=== PATIENT | female | born 1965 | race American Indian/Alaskan Native ===

== ENCOUNTER 2017-11-26 16:33 | Emergency (ER) | payer BC ==
[2017-11-26 16:42] VITALS: TEMP 98.6; BMI 24.6
--- NOTE | 2017-11-26 16:52 | ED PDOC ---
Arrival/HPI - General Chief Complaint: High Blood Pressure Time Seen by Provider: 11/26/17 16:37 Historian: Patient, EMS - History of Present Illness Narrative History of Present Illness (Text): you were treated in the ED today for history of high blood pressure which you aren't on medication yet and having chest pain with radiation to the arm/back for 1.5 days which you were given full dose aspirin and which pain is improved and otherwise without any nausea/vomiting/headache/dizziness/difficulty breathing/abdomen pain/numbness/tingling/loss of limb function/pain with urination/travel/prior blood clots/prior cancer history/prior hormonal use. 11/26/17 16:50 11/26/17 17:49 Time/Duration: Other (1.5 days) Symptom Course: Improving Quality: Aching Severity Level: 1, 2 Activities at Onset: Rest Context: Sitting Past Medical History - Provider Review Nursing Documentation Reviewed: Yes - Travel History Have you recently traveled outside [place] w/in the past 3 mons?: No - Cardiac Hx Hypertension: Yes - Pulmonary Hx Respiratory Disorders: No - Neurological Hx Neurological Disorder: No - HEENT Hx HEENT Disorder: No - Renal Hx Renal Disorder: No - Endocrine/Metabolic Hx Endocrine Disorders: No - Hematological/Oncological Hx Blood Disorders: No - Integumentary Hx Dermatological Disorder: No - Musculoskeletal/Rheumatological Hx Musculoskeletal Disorders: No - Gastrointestinal Hx Gastrointestinal Disorders: No - Genitourinary/Gynecological Hx Genitourinary Disorders: No - Psychiatric Hx Psychophysiologic Disorder: No Hx Substance Use: No - Surgical History Hx Tubal Ligation: Yes - Anesthesia Hx Anesthesia: Yes Hx Anesthesia Reactions: No Family/Social History - Physician Review Nursing Documentation Reviewed: Yes Family/Social History: No Known Family HX Smoking Status: Never Smoked Hx Alcohol Use: No Hx Substance Use: No Allergies/Home Meds Allergies/Adverse Reactions: Allergies Penicillins Allergy (Verified 11/26/17 16:38) NAUSEA Home Medications: Home Meds Medication Instructions Recorded Confirmed No Known Home Med 11/26/17 11/26/17 Review of Systems - Review of Systems Constitutional: Normal Eyes: Normal ENT: Normal Respiratory: Normal Cardiovascular: Chest Pain Gastrointestinal: Normal Genitourinary Female: Normal Musculoskeletal: Normal Skin: Normal Neurological: Normal Endocrine: Normal Hemo/Lymphatic: Normal Psychiatric: Normal Physical Exam Vital Signs Reviewed: Yes Vital Signs Temp Pulse Resp BP Pulse Ox 11/26/17 19:17 74 18 161/92 H 98 11/26/17 16:42 98.6 F 97 H 20 191/116 H 100 11/26/17 16:37 98.6 F 97 H 20 191/116 H 100 Temperature: Afebrile Blood Pressure: Hypertensive Pulse: Regular Respiratory Rate: Normal Appearance: Positive for: Well-Appearing Pain Distress: None Mental Status: Positive for: Alert and Oriented X 3 - Systems Exam Head: Present: Atraumatic, Normocephalic Pupils: Present: PERRL Extroacular Muscles: Present: EOMI Conjunctiva: Present: Normal Ears: Present: Normal Mouth: Present: Moist Mucous Membranes Pharnyx: Present: Normal Nose (External): Present: Atraumatic Nose (Internal): Present: Normal Inspection Neck: Present: Normal Range of Motion Respiratory/Chest: Present: Clear to Auscultation, Good Air Exchange Cardiovascular: Present: Regular Rate and Rhythm Abdomen: No: Tenderness, Distention, Normal Bowel Sounds, Peritoneal Signs, Rebound, Guarding, McBurney's Point Tender, Rovsing's Sign Present, Hernias, Feeding Tubes, Ostomy Tubes, Mass/Organomegaly, Scars, Other Upper Extremity: Present: Normal Inspection Lower Extremity: Present: Normal Inspection Neurological: Present: GCS=15, CN II-XII Intact, Speech Normal, Motor Func Grossly Intact Skin: Present: Warm, Normal Color Psychiatric: Present: Alert, Oriented x 3, Normal Insight, Normal Concentration Medical Decision Making ED Course and Treatment: you were treated in the ED today for history of high blood pressure which you aren't on medication yet and having chest pain with radiation to the arm/back for 1.5 days which you were given full dose aspirin and which pain is improved and otherwise without any nausea/vomiting/headache/dizziness/difficulty breathing/abdomen pain/numbness/tingling/loss of limb function/pain with urination/travel/prior blood clots/prior cancer history/prior hormonal use. You were otherwise breathing easily, pink moist lips, smiling and talking easily, good strength/sensation, alert/oriented, walking easily, clear lungs, no abdomen tenderness, no fever temp 98.6, stable heart rate 97, stable breathing rate 20, excellent oxygen level 100% room air, elevated blood pressure 191/116 and which we recommend repeat in 2-3 days primary care office to determine further treatment, you have blood tests no infection count 6.3, stable blood level hemoglobin 11.5/platelets 265, stable chemistry, heart blood test normal, low risk of blood clot negative, urine test negative for infection, urine test negative, radiology chest xray initial no acute, ECG normal sinus rhythm, aspirin and observation done in the ED with improvement, counselled to stay in the hospital for further observation/care but you refused and cautioned for complications/ but you stated you want to see you primary care doctor as an outpatient. 1. Recommend asprin 81mg daily for heart protection. 2. Recommend follow-up primary care tomorrow to review symptoms, referral to cardiology clinic. 3. If any worsening pain, fever, chills, nausea, vomiting, difficulty breathing, numbness, loss of limb function, pain with urination or any medical condition then return to the ED. 11/26/17 17:51 11/26/17 18:41 11/26/17 18:41 - Lab Interpretations Lab Results: 11/26/17 17:54 11/26/17 17:54 Lab Results 11/26/17 17:54: Sodium 140, Potassium 4.4, Chloride 104, Carbon Dioxide 25, Anion Gap 15, BUN 18, Creatinine 0.7, Est GFR ( Amer) > 60, Est GFR (Non- Af Amer) > 60, Random Glucose 92, Calcium 9.7, Magnesium 2.0, Total Bilirubin 0.3, AST 27, ALT 33, Alkaline Phosphatase 59, Lactate Dehydrogenase 498, Total Creatine Kinase 130, Troponin I < 0.01, Total Protein 8.4 H, Albumin 4.4, Globulin 3.9, Albumin/Globulin Ratio 1.1 11/26/17 17:54: Urine Color Yellow, Urine Appearance Clear, Urine pH 7.0, Ur Specific [place] 1.010, Urine Protein Negative, Urine Glucose (UA) Negative, Urine Ketones Negative, Urine Blood Negative, Urine Nitrate Negative, Urine Bilirubin Negative, Urine Urobilinogen 0.2, Ur Leukocyte Esterase Negative 11/26/17 17:54: PT 11.2, INR 0.98, APTT 28.0, D-Dimer, Quantitative < 200 11/26/17 17:54: WBC 6.2, RBC 4.43, Hgb 11.5 L, Hct 35.8 L, MCV 80.8, MCH 26.0, MCHC 32.1, RDW 17.1 H, Plt Count 265, MPV 10.8, Gran % 58.2, Lymph % (Auto) 34.0 , [place] % (Auto) 6.3 H, Eos % (Auto) 1.0 L, Baso % (Auto) 0.5, Gran # 3.60, Lymph # (Auto) 2.1, [place] # (Auto) 0.4, Eos # (Auto) 0.1, Baso # (Auto) 0.03 - RAD Interpretation Radiology Orders: 11/26/17 16:49 CHEST TWO VIEWS (PA/LAT) [RAD] Stat - EKG Interpretation Interpreted by ED Physician: Yes (normal sinus rhythm, flipped t waves avr, flattened avl) Type: 12 lead EKG Disposition/Present on Arrival - Present on Arrival Any Indicators Present on Arrival: No History of DVT/PE: No History of Uncontrolled Diabetes: No Urinary Catheter: No History of Decub. Ulcer: No History Surgical Site Infection Following: None - Disposition Have Diagnosis and Disposition been Completed?: Yes Diagnosis: Chest pain Disposition: HOME/ ROUTINE Disposition Time: 19:45 Patient Plan: Discharge Condition: IMPROVED Discharge Instructions (ExitCare): Chest Pain (ED) Referrals: Carlos Thakur, [Primary Care Provider] - Follow up with primary Forms: [employer] ([place])
[2017-11-26 18:11] LABS: URINE BILIRUBIN NEGATIVE (NEGATIVE); URINE BLOOD NEGATIVE (NEGATIVE); URINE GLUCOSE (UA) NEGATIVE (NEGATIVE); URINE LEUKOCYTE ESTERASE NEGATIVE Leu/uL (NEGATIVE); URINE NITRATE NEGATIVE (NEGATIVE); URINE PROTEIN NEGATIVE mg/dL (<30 mg/dL); URINE UROBILINOGEN 0.2 E.U./dL (<1 E.U./dL)
[2017-11-26 18:12] LABS: URINE APPEARANCE CLEAR (CLEAR); URINE COLOR YELLOW (YELLOW)
[2017-11-26 18:17] LABS: BASO # 0.03 K/mm3 (0.0-2.0); BASO % 0.5 % (0.0-3.0); EOS # 0.1 (0.0-0.7); GRAN # 3.6 (1.4-6.5); GRAN % 58.2 % (50.0-68.0); HEMOGLOBIN 11.5 g/dL (12.0-16.0); LYMPH # 2.1 (1.2-3.4); MEAN CELL VOLUME 80.8 fl (80.0-105.0); MEAN CORPUSCULAR HGB CONC 32.1 g/dl (31.0-37.0); MEAN PLATELET VOLUME 10.8 fl (7.0-11.0); MONO # 0.4 (0.1-0.6); MONO % 6.3 % (1.0-6.0); RBC 4.43 10^6/uL (3.5-6.1); RED CELL DISTRIBUTION WIDTH 17.1 % (11.5-14.5); WHITE BLOOD COUNT 6.2 10^3/ul (4.5-11.0)
[2017-11-26 18:22] LABS: ALB/GLOB RATIO 1.1 (1.1-1.8); ALBUMIN 4.4 g/dL (3.0-4.8); ALT/SGPT 33 U/L (7-56); AST/SGOT 27 U/L (14-36); BLOOD UREA NITROGEN 18 mg/dL (7-21); CALCIUM 9.7 mg/dL (8.4-10.5); GFR AFRICAN-AMERICAN > 60; GFR NON-AFRICAN AMERICAN > 60
[2017-11-26 18:26] LABS: D DIMER < 200 ng/mL (0-243); INR 0.98 (0.93-1.08); PROTHROMBIN TIME 11.2 SECONDS (9.4-12.5)
[2017-11-26 18:34] LABS: TROPONIN I < 0.01 ng/mL
[2017-11-26 19:21] VITALS: BP 161/92; PULSE 74; RESP 18; O2SAT 98
--- NOTE | 2017-11-27 10:18 | RAD ---
HISTORY: 52yoF, chest pain COMPARISON: No prior. TECHNIQUE: Chest PA and lateral FINDINGS: LUNGS: No active pulmonary disease. PLEURA: No significant pleural effusion identified. No pneumothorax apparent. CARDIOVASCULAR: Normal. OSSEOUS STRUCTURES: No significant abnormalities. VISUALIZED UPPER ABDOMEN: Normal. OTHER FINDINGS: None. IMPRESSION: No active disease.
--- NOTE | 2017-11-27 13:11 | CARD ---
APPROVED REPORT EKG Measurement Heart [id number] <Conclusion> Normal sinus rhythm Moderate voltage criteria for LVH, may be normal variant
== END 2017-11-26 19:57 | disposition home or self-care (01) ==
LOC: ED 16:33
DX: R07.9 Chest pain, unspecified (principal); I10 Essential (primary) hypertension